=== PATIENT | male | born 1955 | race Hispanic/Latino ===

== ENCOUNTER 2023-02-15 17:11 | Inpatient (IN) | payer SELFPAY ==
[~2023-02-15 17:11] MED LIST: Iopamidol-370 76% 500 ML MDV (1 ML CHARGE) ONE
[2023-02-15 19:05] LABS: Hematocrit 17.2 % (42.0-52.0); Hemoglobin 4.2 g/dL (14.0-18.0); Mean Corpuscular Hemoglobin 13.7 pg (27.0-31.0); Platelet Count 397 10x3/uL (130-400); RBC Distribution Width 23.1 % (11.5-14.5); Red Blood Cell (RBC) Count 3.07 mill/uL (4.70-6.10); White Blood Cell (WBC) Count 42.6 10x3/uL (4.8-10.8)
[2023-02-15 19:07] LABS: Mean Corpuscular HGB CONC 24.4 g/dL (32.0-36.0)
[2023-02-15 19:08] LABS: Delete Auto Diff?? YES; Manual Diff?? YES
[2023-02-15 19:20] LABS: INR-International Normal Ratio 1.6; Prothrombin Time 19.3 sec (12.0-14.7)
[2023-02-15 19:21] LABS: PTT 44.9 sec (22.9-36.1)
[2023-02-15 19:23] LABS: Bacteria/HPF None Seen HPF (None Seen); Bilirubin Negative (Negative); Blood, Urine Negative (Negative); CAUTI Indications for Culture Alt mental st,lethar; Clarity Clear (Clear); Glucose, Urine (Dipstick) Normal (Negative); Ketone, Urine Negative (Negative); Leukocyte Negative Leu/uL (Negative); Nitrite Negative (Negative); Protein, Urine (Dipstick) 20 mg/dL (Neg-Trace); RBC/HPF 0-3 HPF (0-3); Specific Gravity, Urine 1.017 (1.002-1.036); Squamous Epithelial 0-3 HPF (0-3); Urobilinogen Normal mg/dL (Less than 2); WBC/HPF 0-3 HPF (0-3); pH, Urine 5.5 (5.0-9.0)
[2023-02-15 19:31] LABS: Urine Culture Reflex No No
[2023-02-15 19:34] LABS: ALT (SGPT) 10 U/L (8-55); AST (SGOT) 16 U/L (5-34); Albumin 4.1 g/dL (3.4-4.8); Alkaline Phosphatase 63 U/L (40-110); Anion Gap 13 mmol/L (10-20); BUN (Urea Nitrogen) 18 mg/dL (8.4-25.7); Bilirubin, Total 1.2 mg/dL (0.2-1.2); Calc. Creatinine Clearance 0 mL/min (70-130); Calcium 11.9 mg/dL (7.8-10.44); Carbon Dioxide 19 mmol/L (23-31); Chloride 104 mmol/L (98-107); Estimated GFR 62; Globulin 3.2 g/dL (2.4-3.5); Glucose 122 mg/dL (80-115); Lipase Less than 4 U/L (8-78); Potassium 3.5 mmol/L (3.5-5.1); Protein, Total 7.3 g/dL (5.8-8.1); Sodium 132 mmol/L (136-145)
[2023-02-15 19:35] LABS: Anisocytosis SLIGHT = 6-15 cells HPF (0-5); Band 25 % (5-11); CellaVision Operator ID LAB.KB; Elliptocytes SLIGHT = 2-5 cells HPF (0-1); Hypochromia MODERATE=16-30 cells HPF (0-5); Lymphocytes 3 % (21-51); Microcytosis MODERATE=15-30 cells HPF (0-5); Monocytes 3 % (0-10); Neutrophil 69 % (42-75); Nucleated RBC (Manual Ct) 1 % (0); Platelet Adequacy Comment Platelets Normal; Polychromasia SLIGHT = 2-3 cells HPF (0-2); Reflex for Review?? YES; Tear Drops SLIGHT = 2-5 cells HPF (0-1); Total Cell Count 100
[2023-02-15] MEDS ORDERED: Azithromycin 500 MG VIAL ONE (19:51)
[2023-02-15] MEDS ORDERED: Ketorolac Tromethamine 30 MG/ML VIAL ONE (19:51)
[2023-02-15] MEDS ORDERED: cefTRIAXone (ROCEPHIN) 1 GM VIAL ONE (19:51)
[2023-02-15 20:02] LABS: Troponin I 0.013 ng/mL (< 0.028)
[2023-02-15] MEDS ORDERED: Vancomycin 1 GM/200 ML (FROZEN) BAG ONE (21:36)
[2023-02-15] MEDS ORDERED: Pantoprazole 40 MG VIAL ONE (21:36)
[2023-02-15 22:22] LABS: Lactic Acid 1.7 mmol/L (0.5-2.2)
[2023-02-15 23:06] LABS: Iron Binding Capacity, Total 376 mcg/dL (261-462)
[2023-02-15 23:10] LABS: Iron Less than 8 ug/dL (65-175)
[2023-02-15] MEDS ORDERED: Ondansetron PF 4 MG/2 ML Vial IVP PRN (23:57)
[2023-02-16] MEDS ORDERED: Piperacillin/Tazobactam 3.375 GM in Sodium Chloride 0.9% 100 ML IVPB SCH (00:15)
[2023-02-16] MEDS ORDERED: Sodium Chloride 0.9% 1,000 ML IV SCH (00:15)
[2023-02-16 00:43] VITALS: BMI 21.9
[2023-02-16 01:37] LABS: Legionella Urinary Ag Negative (Negative); Strep pneumo Urine Ag NEGATIVE (NEGATIVE)
[2023-02-16 02:15] LABS: SARS-CoV-2 NAA Rapid Test Not Detected (NotDetected)
[2023-02-16] MEDS ORDERED: Vancomycin HCl 500 MG in Sodium Chloride 0.9% 100 ML IVPB SCH (02:30)
[2023-02-16] MEDS ORDERED: Vancomycin HCl 500 MG VIAL ONE (02:41)
[2023-02-16 04:07] LABS: Hematocrit 19.6 % (42.0-52.0); Hemoglobin 5.5 g/dL (14.0-18.0); Mean Corpuscular HGB CONC 28.1 g/dL (32.0-36.0); Mean Corpuscular Hemoglobin 17.9 pg (27.0-31.0); Platelet Count 273 10x3/uL (130-400); RBC Distribution Width 31.4 % (11.5-14.5); Red Blood Cell (RBC) Count 3.07 mill/uL (4.70-6.10); White Blood Cell (WBC) Count 32.9 10x3/uL (4.8-10.8)
[2023-02-16 04:35] LABS: ALT (SGPT) 10 U/L (8-55); AST (SGOT) 16 U/L (5-34); Albumin 3.3 g/dL (3.4-4.8); Alkaline Phosphatase 65 U/L (40-110); Anion Gap 12 mmol/L (10-20); BUN (Urea Nitrogen) 17 mg/dL (8.4-25.7); Bilirubin, Total 1.3 mg/dL (0.2-1.2); Calc. Creatinine Clearance 61 mL/min (70-130); Calcium 10.9 mg/dL (7.8-10.44); Carbon Dioxide 19 mmol/L (23-31); Chloride 109 mmol/L (98-107); Estimated GFR 77; Globulin 2.5 g/dL (2.4-3.5); Glucose 115 mg/dL (80-115); Potassium 3.7 mmol/L (3.5-5.1); Protein, Total 5.8 g/dL (5.8-8.1); Sodium 136 mmol/L (136-145)
[2023-02-16 05:03] LABS: Delete Auto Diff?? YES; Manual Diff?? YES
[2023-02-16 06:27] LABS: Anisocytosis SLIGHT = 6-15 cells HPF (0-5); Band 25 % (5-11); Burr Cells SLIGHT = 2-5 cells HPF (0-1); CellaVision Operator ID LAB.JMM; Elliptocytes SLIGHT = 2-5 cells HPF (0-1); Hypochromia MODERATE=16-30 cells HPF (0-5); Lymphocytes 3 % (21-51); Microcytosis SLIGHT = 6-15 cells HPF (0-5); Monocytes 3 % (0-10); Neutrophil 68 % (42-75); Nucleated RBC (Manual Ct) 1 % (0); Platelet Adequacy Comment Platelets Normal; Polychromasia SLIGHT = 2-3 cells HPF (0-2); Stomatocytes SLIGHT = 2-5 cells HPF (0-1); Tear Drops SLIGHT = 2-5 cells HPF (0-1); Total Cell Count 100
[2023-02-16] MEDS: Sodium Chloride 0.9% 1,000 ML IV SCH ×2 (06:36→17:43)
[2023-02-16 06:40] LABS: Mean Corpuscular Volume 63.8 fl (78.0-98.0)
[2023-02-16] MEDS ORDERED: Piperacillin/Tazobactam 3.375 GM VIAL ONE ×2 (06:41→11:47)
[2023-02-16] MEDS: Piperacillin/Tazobactam 3.375 GM in Sodium Chloride 0.9% 100 ML IVPB SCH ×2 (06:54→12:32)
[2023-02-16] MEDS ORDERED: Ferrous Sulfate 325 MG TAB PO SCH (08:00)
[2023-02-16] MEDS ORDERED: Pantoprazole 40 MG VIAL ONE (10:09)
[2023-02-16 12:06] LABS: Hematocrit 24.5 % (42.0-52.0)
[2023-02-16 12:29] LABS: Phosphorus 2.1 mg/dL (2.3-4.7)
[2023-02-16] MEDS: Pantoprazole 40 MG VIAL IVP SCH ×2 (12:32→20:40)
[2023-02-16] MEDS ORDERED: Iron, Sodium Ferric Gluconate 250 MG in Sodium Chloride 0.9% 250 ML 250 ML IVPB SCH (15:30)
[2023-02-16 17:38] LABS: Hematocrit 24.7 % (42.0-52.0)
[2023-02-16] MEDS: Azithromycin 500 MG in Sodium Chloride 0.9% 250 ML 250 ML IVPB SCH (20:40)
[2023-02-16] MEDS: Vancomycin 1 GM in Premix 1 BAG IVPB SCH (22:05)
[2023-02-17] MEDS: Piperacillin/Tazobactam 3.375 GM in Sodium Chloride 0.9% 100 ML IVPB SCH ×4 (00:06→23:08)
[2023-02-17 02:43] LABS: #Basophils 0.1 thou/uL (0.0-0.2); #Monocytes 1.6 thou/uL (0.11-0.59); #Neutrophils 18.7 thou/uL (1.40-6.50); %Basophils 0.5 % (0.0-1.0); %Eosinophils 0.2 % (0.0-10.0); %Lymphocytes 6.7 % (21.0-51.0); %Monocytes 7.4 % (0.0-10.0); %Neutrophils 83.9 % (42.0-75.0); Hemoglobin 6.8 g/dL (14.0-18.0); Mean Corpuscular HGB CONC 28.3 g/dL (32.0-36.0); Mean Corpuscular Hemoglobin 18.5 pg (27.0-31.0); Mean Corpuscular Volume 65.2 fl (78.0-98.0); Platelet Count 322 10x3/uL (130-400); RBC Distribution Width 30.5 % (11.5-14.5); Red Blood Cell (RBC) Count 3.68 mill/uL (4.70-6.10); White Blood Cell (WBC) Count 22.2 10x3/uL (4.8-10.8)
[2023-02-17 04:08] LABS: ALT (SGPT) 14 U/L (8-55); AST (SGOT) 19 U/L (5-34); Albumin 3.1 g/dL (3.4-4.8); Alkaline Phosphatase 58 U/L (40-110); Anion Gap 13 mmol/L (10-20); BUN (Urea Nitrogen) 19 mg/dL (8.4-25.7); Calc. Creatinine Clearance 56 mL/min (70-130); Calcium 11.1 mg/dL (7.8-10.44); Carbon Dioxide 18 mmol/L (23-31); Chloride 112 mmol/L (98-107); Estimated GFR 70; Globulin 2.9 g/dL (2.4-3.5); Glucose 94 mg/dL (80-115); Potassium 3.7 mmol/L (3.5-5.1); Sodium 139 mmol/L (136-145)
[2023-02-17] MEDS: Sodium Chloride 0.9% 1,000 ML IV SCH ×2 (06:22→13:48)
[2023-02-17] MEDS: Pantoprazole 40 MG VIAL IVP SCH ×2 (09:59→20:52)
[2023-02-17 10:26] LABS: INR-International Normal Ratio 1.2; Prothrombin Time 15.2 sec (12.0-14.7)
[2023-02-17 10:28] LABS: PTT 50.9 sec (22.9-36.1)
[2023-02-17] MEDS: Iron, Sodium Ferric Gluconate 250 MG in Sodium Chloride 0.9% 250 ML 250 ML IVPB SCH (16:24)
[2023-02-17] MEDS: Azithromycin 500 MG in Sodium Chloride 0.9% 250 ML 250 ML IVPB SCH (20:52)
[2023-02-17 21:22] LABS: Vancomycin, Trough 4.9 ug/mL
[2023-02-17] MEDS: Vancomycin 1 GM in Premix 1 BAG IVPB SCH ×2 (22:48→23:09)
[2023-02-18 04:51] LABS: Hematocrit 27.9 % (42.0-52.0); Hemoglobin 8.1 g/dL (14.0-18.0); Mean Corpuscular Hemoglobin 19.4 pg (27.0-31.0); Mean Corpuscular Volume 66.9 fl (78.0-98.0); Platelet Count 303 10x3/uL (130-400); RBC Distribution Width 30.9 % (11.5-14.5); Red Blood Cell (RBC) Count 4.17 mill/uL (4.70-6.10); White Blood Cell (WBC) Count 17.7 10x3/uL (4.8-10.8)
[2023-02-18 05:10] LABS: Delete Auto Diff?? YES; Manual Diff?? YES
[2023-02-18 05:20] LABS: ALT (SGPT) 15 U/L (8-55); AST (SGOT) 18 U/L (5-34); Albumin 3.1 g/dL (3.4-4.8); Alkaline Phosphatase 59 U/L (40-110); Anion Gap 8 mmol/L (10-20); BUN (Urea Nitrogen) 12 mg/dL (8.4-25.7); Bilirubin, Total 0.8 mg/dL (0.2-1.2); Calc. Creatinine Clearance 64 mL/min (70-130); Calcium 10.8 mg/dL (7.8-10.44); Carbon Dioxide 21 mmol/L (23-31); Chloride 112 mmol/L (98-107); Estimated GFR 82; Globulin 2.7 g/dL (2.4-3.5); Glucose 82 mg/dL (80-115); Potassium 3.5 mmol/L (3.5-5.1); Protein, Total 5.8 g/dL (5.8-8.1); Sodium 137 mmol/L (136-145)
[2023-02-18] MEDS: Piperacillin/Tazobactam 3.375 GM in Sodium Chloride 0.9% 100 ML IVPB SCH ×3 (05:27→21:12)
[2023-02-18 06:09] LABS: Anisocytosis MODERATE=16-30 cells HPF (0-5); Band 9 % (5-11); CellaVision Operator ID LAB.JMM; Eosinophils 1 % (0-10); Hypochromia MODERATE=16-30 cells HPF (0-5); Large Platelets 9.7 % (0-5); Lymphocytes 4 % (21-51); Macrocytosis SLIGHT = 6-15 cells HPF (0-5); Metamyelocyte 2 % (0-0); Monocytes 4 % (0-10); Myelocyte 2 % (0-0); Neutrophil 77 % (42-75); Nucleated RBC (Manual Ct) 3 % (0); Platelet Adequacy Comment Platelets Normal; Polychromasia SLIGHT = 2-3 cells HPF (0-2); Reactive Lymphocytes 1 % (0-10); Tear Drops SLIGHT = 2-5 cells HPF (0-1); Total Cell Count 103
[2023-02-18] MEDS: Vancomycin 1 GM in Premix 1 BAG IVPB SCH ×2 (09:36→21:12)
[2023-02-18] MEDS: Pantoprazole 40 MG VIAL IVP SCH ×2 (09:36→20:14)
[2023-02-18] MEDS: Sodium Chloride 0.9% 1,000 ML IV SCH ×2 (12:51)
[2023-02-18] MEDS: Iron, Sodium Ferric Gluconate 250 MG in Sodium Chloride 0.9% 250 ML 250 ML IVPB SCH (16:02)
[2023-02-18] MEDS ORDERED: guaiFENesin ER 600 MG TAB PO SCH (16:15)
[2023-02-18] MEDS: guaiFENesin ER 600 MG TAB PO SCH (19:12)
[2023-02-18] MEDS: Azithromycin 500 MG in Sodium Chloride 0.9% 250 ML 250 ML IVPB SCH (20:14)
[2023-02-19] MEDS ORDERED: hydrALAZINE 25 MG TAB PO SCH (01:45)
[2023-02-19] MEDS: Piperacillin/Tazobactam 3.375 GM in Sodium Chloride 0.9% 100 ML IVPB SCH ×3 (05:29→22:19)
[2023-02-19 08:58] LABS: #Basophils 0.3 thou/uL (0.0-0.2); #Eosinphils 0.2 thou/uL (0.0-0.7); #Monocytes 1.5 thou/uL (0.11-0.59); %Basophils 1.9 % (0.0-1.0); %Eosinophils 1.3 % (0.0-10.0); %Lymphocytes 9.4 % (21.0-51.0); %Monocytes 8.1 % (0.0-10.0); %Neutrophils 66.6 % (42.0-75.0); Mean Corpuscular HGB CONC 28.1 g/dL (32.0-36.0); Mean Corpuscular Volume 71.3 fl (78.0-98.0); Platelet Count 335 10x3/uL (130-400); Red Blood Cell (RBC) Count 4.49 mill/uL (4.70-6.10); White Blood Cell (WBC) Count 18.1 10x3/uL (4.8-10.8)
[2023-02-19 09:22] LABS: Vancomycin, Trough 13.1 ug/mL
[2023-02-19 09:24] LABS: Anion Gap 10 mmol/L (10-20); BUN (Urea Nitrogen) 8 mg/dL (8.4-25.7); Calc. Creatinine Clearance 65 mL/min (70-130); Carbon Dioxide 19 mmol/L (23-31); Chloride 112 mmol/L (98-107); Estimated GFR 83; Glucose 168 mg/dL (80-115); Potassium 3.4 mmol/L (3.5-5.1); Sodium 138 mmol/L (136-145)
[2023-02-19] MEDS ORDERED: GoLYTELY 4,000 ml Bottle PO SCH (09:45)
[2023-02-19] MEDS: Pantoprazole 40 MG VIAL IVP SCH ×2 (09:52→22:19)
[2023-02-19] MEDS: Vancomycin 1 GM in Premix 1 BAG IVPB SCH (09:52)
[2023-02-19] MEDS: guaiFENesin ER 600 MG TAB PO SCH ×2 (09:52→22:19)
[2023-02-19] MEDS ORDERED: Vancomycin HCl 250 MG in Sodium Chloride 0.9% 100 ML IVPB SCH (10:30)
[2023-02-19 10:34] LABS: Anisocytosis MARKED = >30 cells HPF (0-5); Band 3 % (5-11); CellaVision Operator ID LAB.GE; Eosinophils 3 % (0-10); Hypochromia SLIGHT = 6-15 cells HPF (0-5); Large Platelets 8.3 % (0-5); Lymphocytes 11 % (21-51); Metamyelocyte 7 % (0-0); Monocytes 4 % (0-10); Myelocyte 3 % (0-0); Neutrophil 67 % (42-75); Nucleated RBC (Manual Ct) 4 % (0); Platelet Adequacy Comment Platelets Normal; Polychromasia MARKED = >4 cells HPF (0-2); Reflex for Review?? YES; Schistocytes SLIGHT = 2-5 cells HPF (0-1); Spherocytes SLIGHT = 1-5 cells HPF (None Seen); Tear Drops SLIGHT = 2-5 cells HPF (0-1); Total Cell Count 108
[2023-02-19] MEDS ORDERED: Amlodipine 5 MG TAB PO SCH (14:45)
[2023-02-19] MEDS: Iron, Sodium Ferric Gluconate 250 MG in Sodium Chloride 0.9% 250 ML 250 ML IVPB SCH (18:07)
[2023-02-19] MEDS ORDERED: Vancomycin (BATCH) 1.25 GM in Premix 1 BAG IVPB SCH (22:00)
[2023-02-19] MEDS: Azithromycin 500 MG in Sodium Chloride 0.9% 250 ML 250 ML IVPB SCH (22:18)
[2023-02-20] MEDS: cloNIDine 0.1 MG TAB PO PRN ×2 (02:27→07:34)
[2023-02-20 04:50] LABS: Hematocrit 31.5 % (42.0-52.0); Hemoglobin 9.1 g/dL (14.0-18.0); Mean Corpuscular HGB CONC 28.9 g/dL (32.0-36.0); Mean Corpuscular Hemoglobin 20.7 pg (27.0-31.0); Mean Corpuscular Volume 71.8 fl (78.0-98.0); Platelet Count 336 10x3/uL (130-400); RBC Distribution Width 34.5 % (11.5-14.5); Red Blood Cell (RBC) Count 4.39 mill/uL (4.70-6.10); White Blood Cell (WBC) Count 18.6 10x3/uL (4.8-10.8)
[2023-02-20 04:59] LABS: Delete Auto Diff?? YES; Manual Diff?? YES
[2023-02-20 05:26] LABS: Anion Gap 9 mmol/L (10-20); BUN (Urea Nitrogen) 8 mg/dL (8.4-25.7); Calc. Creatinine Clearance 64 mL/min (70-130); Calcium 11.2 mg/dL (7.8-10.44); Carbon Dioxide 24 mmol/L (23-31); Chloride 111 mmol/L (98-107); Estimated GFR 82; Glucose 88 mg/dL (80-115); Potassium 3.4 mmol/L (3.5-5.1); Sodium 141 mmol/L (136-145)
[2023-02-20 05:31] LABS: Anisocytosis MODERATE=16-30 cells HPF (0-5); Band 9 % (5-11); CellaVision Operator ID LAB.CLH1; Elliptocytes SLIGHT = 2-5 cells HPF (0-1); Hypochromia SLIGHT = 6-15 cells HPF (0-5); Lymphocytes 9 % (21-51); Microcytosis SLIGHT = 6-15 cells HPF (0-5); Monocytes 5 % (0-10); Myelocyte 4 % (0-0); Neutrophil 71 % (42-75); Nucleated RBC (Manual Ct) 3 % (0); Platelet Adequacy Comment Platelets Normal; Polychromasia SLIGHT = 2-3 cells HPF (0-2); Total Cell Count 101
[2023-02-20] MEDS: Piperacillin/Tazobactam 3.375 GM in Sodium Chloride 0.9% 100 ML IVPB SCH ×3 (05:45→22:55)
[2023-02-20] MEDS ORDERED: Lidocaine 1% PF 5 ML VIAL ONE (08:31)
[2023-02-20] MEDS ORDERED: PROPOFOL 200 MG/20 ML VIAL ONE (08:31)
[2023-02-20] MEDS ORDERED: Promethazine HCl 25 MG/ML VIAL IM PRN (08:41)
[2023-02-20] MEDS ORDERED: Ondansetron HCl/PF 4 MG/2 ML Vial IVP PRN (08:41)
[2023-02-20] MEDS: guaiFENesin ER 600 MG TAB PO SCH ×2 (09:29→20:58)
[2023-02-20] MEDS: Amlodipine 5 MG TAB PO SCH (09:29)
[2023-02-20] MEDS: Pantoprazole 40 MG VIAL IVP SCH ×2 (09:29→20:58)
[2023-02-20] MEDS ORDERED: GoLYTELY 4,000 ml Bottle PO SCH (09:42)
[2023-02-20] MEDS ORDERED: Potassium Chloride 20 MEQ TAB PO SCH (10:00)
[2023-02-20] MEDS: Iron, Sodium Ferric Gluconate 250 MG in Sodium Chloride 0.9% 250 ML 250 ML IVPB SCH (16:19)
[2023-02-20] MEDS: Azithromycin 500 MG in Sodium Chloride 0.9% 250 ML 250 ML IVPB SCH (20:58)
[2023-02-21] MEDS: Piperacillin/Tazobactam 3.375 GM in Sodium Chloride 0.9% 100 ML IVPB SCH ×3 (05:55→21:42)
[2023-02-21] MEDS: cloNIDine 0.1 MG TAB PO PRN ×2 (06:01→23:42)
[2023-02-21 06:54] LABS: Hematocrit 39.9 % (42.0-52.0); Mean Corpuscular HGB CONC 27.6 g/dL (32.0-36.0); Mean Corpuscular Hemoglobin 20.3 pg (27.0-31.0); Mean Corpuscular Volume 73.6 fl (78.0-98.0); Platelet Count 389 10x3/uL (130-400); RBC Distribution Width 36.9 % (11.5-14.5); Red Blood Cell (RBC) Count 5.42 mill/uL (4.70-6.10); White Blood Cell (WBC) Count 15.7 10x3/uL (4.8-10.8)
[2023-02-21 07:02] LABS: Delete Auto Diff?? YES; Manual Diff?? YES
[2023-02-21 07:21] LABS: Anion Gap 15 mmol/L (10-20); BUN (Urea Nitrogen) 7 mg/dL (8.4-25.7); Calc. Creatinine Clearance 69 mL/min (70-130); Calcium 12.8 mg/dL (7.8-10.44); Carbon Dioxide 22 mmol/L (23-31); Chloride 110 mmol/L (98-107); Estimated GFR 90; Glucose 89 mg/dL (80-115); Potassium 3.8 mmol/L (3.5-5.1); Sodium 143 mmol/L (136-145)
[2023-02-21 08:00] LABS: Anisocytosis SLIGHT = 6-15 cells HPF (0-5); CellaVision Operator ID LAB.NR; Eosinophils 1 % (0-10); Hypochromia MODERATE=16-30 cells HPF (0-5); Large Platelets 2.9 % (0-5); Lymphocytes 13 % (21-51); Macrocytosis MODERATE=16-30 cells HPF (0-5); Microcytosis SLIGHT = 6-15 cells HPF (0-5); Monocytes 12 % (0-10); Neutrophil 73 % (42-75); Ovalocytes SLIGHT = 2-5 cells HPF (0-1); Platelet Adequacy Comment Platelets Normal; Polychromasia MODERATE = 3-4 cells HPF (0-2); Smudge Cells 5.8 %; Total Cell Count 104
[2023-02-21] MEDS ORDERED: Lidocaine 1% PF 5 ML VIAL ONE (08:10)
[2023-02-21] MEDS ORDERED: PROPOFOL 200 MG/20 ML VIAL ONE (08:10)
[2023-02-21] MEDS ORDERED: Promethazine HCl 25 MG/ML VIAL IM PRN (08:43)
[2023-02-21] MEDS ORDERED: Ondansetron HCl/PF 4 MG/2 ML Vial IVP PRN (08:43)
[2023-02-21] MEDS: guaiFENesin ER 600 MG TAB PO SCH ×2 (09:53→20:52)
[2023-02-21] MEDS: Pantoprazole 40 MG VIAL IVP SCH (09:57)
[2023-02-21] MEDS: Amlodipine 5 MG TAB PO SCH (12:04)
[2023-02-21] MEDS: Acetaminophen 325 MG TAB PO PRN (20:52)
[2023-02-21] MEDS: Azithromycin 500 MG in Sodium Chloride 0.9% 250 ML 250 ML IVPB SCH (20:53)
[2023-02-22 04:37] LABS: Hematocrit 34.5 % (42.0-52.0); Hemoglobin 9.9 g/dL (14.0-18.0); Mean Corpuscular HGB CONC 28.7 g/dL (32.0-36.0); Mean Corpuscular Hemoglobin 21.3 pg (27.0-31.0); Mean Corpuscular Volume 74.2 fl (78.0-98.0); Platelet Count 318 10x3/uL (130-400); RBC Distribution Width 37.5 % (11.5-14.5); Red Blood Cell (RBC) Count 4.65 mill/uL (4.70-6.10); White Blood Cell (WBC) Count 10.2 10x3/uL (4.8-10.8)
[2023-02-22] MEDS: cloNIDine 0.1 MG TAB PO PRN (04:40)
[2023-02-22 04:53] LABS: Delete Auto Diff?? YES; Manual Diff?? YES
[2023-02-22] MEDS ORDERED: Ketorolac Tromethamine 30 MG/ML VIAL IVP SCH (05:00)
[2023-02-22] MEDS: Piperacillin/Tazobactam 3.375 GM in Sodium Chloride 0.9% 100 ML IVPB SCH ×2 (05:10→13:59)
[2023-02-22 05:38] LABS: Anisocytosis SLIGHT = 6-15 cells HPF (0-5); Band 6 % (5-11); CellaVision Operator ID LAB.CLH1; Elliptocytes SLIGHT = 2-5 cells HPF (0-1); Hypochromia SLIGHT = 6-15 cells HPF (0-5); Lymphocytes 10 % (21-51); Macrocytosis SLIGHT = 6-15 cells HPF (0-5); Microcytosis SLIGHT = 6-15 cells HPF (0-5); Monocytes 14 % (0-10); Neutrophil 67 % (42-75); Platelet Adequacy Comment Platelets Normal; Polychromasia SLIGHT = 2-3 cells HPF (0-2); Reactive Lymphocytes 1 % (0-10); Target Cells SLIGHT = 2-5 cells HPF (0-1); Total Cell Count 100
[2023-02-22] MEDS: guaiFENesin ER 600 MG TAB PO SCH ×2 (08:42→20:33)
[2023-02-22] MEDS: Amlodipine 5 MG TAB PO SCH (08:45)
[2023-02-22] MEDS ORDERED: traMADol HCl 50 MG TAB PO PRN (20:03)
[2023-02-22] MEDS: Azithromycin 500 MG in Sodium Chloride 0.9% 250 ML 250 ML IVPB SCH (20:34)
[2023-02-22] MEDS: Acetaminophen 325 MG TAB PO PRN (20:38)
[2023-02-23] MEDS: Acetaminophen 325 MG TAB PO PRN (05:23)
[2023-02-23] MEDS: cloNIDine 0.1 MG TAB PO PRN (05:25)
[2023-02-23 05:28] LABS: #Basophils 0.1 thou/uL (0.0-0.2); #Eosinphils 0.2 thou/uL (0.0-0.7); #Monocytes 1.1 thou/uL (0.11-0.59); #Neutrophils 6.1 thou/uL (1.40-6.50); %Basophils 1.2 % (0.0-1.0); %Eosinophils 1.7 % (0.0-10.0); %Lymphocytes 17.7 % (21.0-51.0); %Monocytes 12.1 % (0.0-10.0); %Neutrophils 65.5 % (42.0-75.0); Hematocrit 35.6 % (42.0-52.0); Hemoglobin 10.1 g/dL (14.0-18.0); Mean Corpuscular HGB CONC 28.4 g/dL (32.0-36.0); Mean Corpuscular Hemoglobin 21.4 pg (27.0-31.0); Mean Corpuscular Volume 75.4 fl (78.0-98.0); Platelet Count 352 10x3/uL (130-400); RBC Distribution Width 38.8 % (11.5-14.5); Red Blood Cell (RBC) Count 4.72 mill/uL (4.70-6.10); White Blood Cell (WBC) Count 9.3 10x3/uL (4.8-10.8)
[2023-02-23 06:17] LABS: Anisocytosis MARKED = >30 cells HPF (0-5); Burr Cells SLIGHT = 2-5 cells HPF (0-1); CellaVision Operator ID lab.sh2; Hypochromia MODERATE=16-30 cells HPF (0-5); Macrocytosis SLIGHT = 6-15 cells HPF (0-5); Ovalocytes SLIGHT = 2-5 cells HPF (0-1); Platelet Adequacy Comment Platelets Normal; Poikilocytosis SLIGHT = 6-15 cells HPF (0-5); Polychromasia MODERATE = 3-4 cells HPF (0-2); Tear Drops SLIGHT = 2-5 cells HPF (0-1)
[2023-02-23] MEDS: guaiFENesin ER 600 MG TAB PO SCH (08:49)
[2023-02-23 08:50] VITALS: TEMP 98.4
[2023-02-23] MEDS: Amlodipine 5 MG TAB PO SCH (08:50)
[2023-02-23 13:25] VITALS: BP 165/74
== END 2023-02-23 14:15 | disposition home or self-care (01) | DRG 871 ==
LOC: ERS 17:11 → ERHOLD 23:53 → 2NO 02-16 15:08 → T4-A 02-20 22:37
PROVIDERS: ADMIT Internal Medicine; ATTEND Family Medicine
PROC: 30233N1 Transfusion of Nonautologous Red Blood Cells into Peripheral Vein, Percutaneous Approach (ICD-10-PCS; 2023-02-15)
PROC: 3E03329 Introduction of Other Anti-infective into Peripheral Vein, Percutaneous Approach (ICD-10-PCS; 2023-02-15)
PROC: 0DJ08ZZ Inspection of Upper Intestinal Tract, Via Natural or Artificial Opening Endoscopic (ICD-10-PCS; principal; 2023-02-20)
PROC: 0DJD8ZZ Inspection of Lower Intestinal Tract, Via Natural or Artificial Opening Endoscopic (ICD-10-PCS; 2023-02-21)
DX: A41.9 Sepsis, unspecified organism (principal); J18.9 Pneumonia, unspecified organism; T82.868A Thrombosis due to vascular prosthetic devices, implants and grafts, initial encounter; I82.612 Acute embolism and thrombosis of superficial veins of left upper extremity; E83.52 Hypercalcemia; K21.9 Gastro-esophageal reflux disease without esophagitis; D50.9 Iron deficiency anemia, unspecified; K80.20 Calculus of gallbladder without cholecystitis without obstruction; E04.1 Nontoxic single thyroid nodule; I80.8 Phlebitis and thrombophlebitis of other sites; K57.30 Diverticulosis of large intestine without perforation or abscess without bleeding; K64.4 Residual hemorrhoidal skin tags; Z20.822 Contact with and (suspected) exposure to COVID-19; Z79.899 Other long term (current) drug therapy; Z98.890 Other specified postprocedural states
CPT/HCPCS: 36415; 36430; 70450; 71045; 71260; 72125; 74177; 76536; 76705; 78227; 80048; 80053; 80202; 81001; 82274; 82306; 82607; 82728; 83010; 83540; 83550; 83605; 83615; 83690; 83880; 83970; 84100; 84466; 84484; 85025; 85046; 85060; 85610; 85730; 86850; 86900; 86901; 87040; 87070; 87081; 87205; 87449; 87899; 93005; 96365; 96368; 96375; A9537; C9113; J0456; J0696; J1885; J2543; J2704; J2916; J3370; J3370-JW; J3490; J7050; P9016; Q9967